=== PATIENT | female | born 1985 | race Caucasian/White ===

== ENCOUNTER 2017-12-18 16:12 | Emergency (ER) | payer SELFPAY ==
[2017-12-18] MEDS ORDERED: predniSONE 20 MG TABLET PO ONE (17:00)
[2017-12-18] MEDS ORDERED: FAMOTIDINE (20 MG) 20 MG TABLET PO ONE (17:00)
[2017-12-18] MEDS ORDERED: FAMOTIDINE (20 MG) 20 MG TABLET ONE (17:08)
[2017-12-18] MEDS ORDERED: predniSONE 20 MG TABLET ONE (17:08)
[2017-12-18] MEDS ORDERED: ALBUTEROL FS 2.5 MG/3 ML VIAL.NEB ONE (17:51)
[2017-12-18] MEDS ORDERED: ALBUTEROL FS 2.5 MG/0.5 ML VIAL.NEB NEB ONE (18:00)
== END 2017-12-18 20:04 | disposition home or self-care (01) ==
DX: T78.49XA Other allergy, initial encounter (principal); J45.909 Unspecified asthma, uncomplicated; Z91.010 Allergy to peanuts; X58.XXXA Exposure to other specified factors, initial encounter